=== PATIENT | female | born 1990 | race Caucasian/White ===

== ENCOUNTER 2020-03-04 12:59 | Emergency (ER) | payer BC ==
[2020-03-04 13:08] VITALS: BP 153/88; PULSE 90; RESP 18; TEMP 97.9
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
[2020-03-04 13:48] LABS: Basophils % (A) 1 %; Eosinophils # (A) 0.1 k/uL (0-0.7); Eosinophils % (A) 2 %; HCT 42.1 % (34.0-46.0); HGB 14.6 gm/dL (11.4-16.0); Lymphocytes # (A) 2.1 k/uL (1.0-4.8); Lymphocytes % (A) 43 %; MCH 31.3 pg (25.0-35.0); MCHC 34.7 g/dL (31.0-37.0); Mean Platelet Volume 7.3; Monocytes # (A) 0.2 k/uL (0-1.0); Monocytes % (A) 5 %; Neutrophils # (A) 2.3 k/uL (1.3-7.7); Neutrophils % (A) 47 %; Platelet Count 225 k/uL (150-450); RBC 4.68 m/uL (3.80-5.40); RDW 12.9 % (11.5-15.5); WBC 4.9 k/uL (3.8-10.6)
[2020-03-04 13:58] LABS: ALT 20 U/L (4-34); AST 29 U/L (14-36); African American GFR (CKD) >90 (>60 ml/min/1.73 sqM); Albumin 4.6 g/dL (3.5-5.0); Alkaline Phosphatase 36 U/L (38-126); Anion Gap 5 mmol/L; Blood Urea Nitrogen 12 mg/dL (7-17); Calcium 9.6 mg/dL (8.4-10.2); Carbon Dioxide 28 mmol/L (22-30); Chloride 105 mmol/L (98-107); Glucose 101 mg/dL (74-99); Non-African American GFR(CKD) 89 (>60 ml/min/1.73 sqM); Sodium 138 mmol/L (137-145); Total Bilirubin 0.9 mg/dL (0.2-1.3); Total Protein 7.7 g/dL (6.3-8.2)
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
== END 2020-03-04 15:57 | disposition home or self-care (01) ==
LOC: EC 12:59
DX: Z04.1 Encounter for examination and observation following transport accident (principal); R51.9 Headache, unspecified; R42 Dizziness and giddiness; R11.0 Nausea; Z88.8 Allergy status to other drugs, medicaments and biological substances
CPT/HCPCS: 36415; 80053; 85025; 72125; 70450; 71260; 74177; 99284; Q9967

== ENCOUNTER → 2021-02-22 | Outpatient (CLI) | payer MEDICAID ==
[2021-02-22 14:30] LABS: HGB 10.4 g/dL (12.0-15.0); MCH 30.6 pg (27.0-32.0); MCHC 32.5 g/dL (32.0-37.0); MCV 94.1 fL (80.0-97.0); Mean Platelet Volume 10.5 fL (9.5-12.2); Platelet Count 197 X 10*3/uL (140-440); WBC 5.99 X 10*3/uL (4.50-10.00)
[2021-02-22 16:08] LABS: Hepatitis B Surface Antigen Nonreactive (Nonreactive)
[2021-02-22 18:12] LABS: African American GFR (CKD) 146.5 (60.0-200.0); Non-African American GFR(CKD) 126.4 (60.0-200.0)
[2021-02-22 21:41] LABS: HIV 2 AB Non-Reactive (Non-Reactive); HIV AB P24 Non-Reactive (Non-Reactive); HIV P24 AG Non-Reactive (Non-Reactive)
== END | disposition home or self-care (01) ==
LOC: LABWHC1 07:19
PROVIDERS: ATTEND Obstetrics & Gynecology
DX: Z34.82 Encounter for supervision of other normal pregnancy, second trimester (principal); Z3A.00 Weeks of gestation of pregnancy not specified
CPT/HCPCS: 36415; 82565; 82950; 85027; 86762; 86780; 86850; 86900; 86901; 87340; 87390

== ENCOUNTER 2021-05-09 09:52 | Inpatient (IN) | payer MEDICAID ==
[2021-05-09 10:21] LABS: Creatinine,Urine Random 23.3 mg/dL; Protein/Creatinine Ratio,Urine 0.515
[2021-05-09 11:17] LABS: ALT 33 U/L (4-34); AST 55 U/L (14-36); African American GFR (CKD) >90 (>60 ml/min/1.73 sqM); Blood Urea Nitrogen 12 mg/dL (7-17); LDH 696 U/L (313-618); Non-African American GFR(CKD) >90 (>60 ml/min/1.73 sqM)
[2021-05-09 11:20] LABS: Basophils % (A) 1 %; Eosinophils # (A) 0.1 k/uL (0-0.7); Eosinophils % (A) 1 %; HCT 29.8 % (34.0-46.0); HGB 9.8 gm/dL (11.4-16.0); Hypochromasia Slight; Lymphocytes # (A) 1.6 k/uL (1.0-4.8); Lymphocytes % (A) 27 %; MCH 29.2 pg (25.0-35.0); MCHC 32.9 g/dL (31.0-37.0); MCV 88.7 fL (80.0-100.0); Mean Platelet Volume 9.5; Monocytes # (A) 0.3 k/uL (0-1.0); Monocytes % (A) 5 %; Neutrophils # (A) 3.7 k/uL (1.3-7.7); Neutrophils % (A) 62 %; Platelet Count 165 k/uL (150-450); Poikilocytosis Slight; RBC 3.36 m/uL (3.80-5.40); RDW 13.4 % (11.5-15.5); WBC 5.9 k/uL (3.8-10.6)
[2021-05-09] MEDS: BETAMET ACET-BETAMETH SOD PHOS 6 MG/ML MDV IM SCH ×2 (11:42→23:31)
[2021-05-09] MEDS ORDERED: DINOPROSTONE 10 MG INSERT.ER VAGINAL ONE (13:13)
--- NOTE | 2021-05-09 13:13 | P.HPOB ---
History of Present Illness H&P Date: 05/09/21 Chief Complaint: Hypertension This patient is a pleasant 30-year-old 2 para 1 female estimated date of confinement 06/04/2021 estimated gestational age 36-2/7 weeks gestation who is admitted to labor and delivery for evaluation of gestational hypertension in the office. Patient's history is such that she had severe preeclampsia with her last at 36 weeks which required delivery patient has been on baby aspirin this watch closely however today when she presented blood pressure was elevated. The office patient's blood pressures 146/91 and repeat blood pressures here show persistent diastolic elevation over 90. Laboratory evaluation does show elevated liver function tests LDH, and protein to creatinine ratio all consistent with preeclampsia with now severe features. I discussed options with the patient was point were to proceed with Celestone therapy, Cervidil induction of labor and anticipate vaginal delivery. otherwise has been uncomplicated. 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 History of Any Multi-Drug Resistant Organisms: None Reported Past Surgical History: No Surgical Hx Reported Additional Past Surgical History / Comment(s): Breast Augmentation 4 years ago, no complications Past Anesthesia/Blood Transfusion Reactions: No Reported Reaction Past Psychological History: No Psychological Hx Reported Smoking Status: Never smoker Past Alcohol Use History: None Reported, Rare Past Drug Use History: None Reported - Past Family History Mother Additional Family Medical History / Comment(s): Chrone's Disease Medications and Allergies Home Medications Medication Instructions Recorded Confirmed Type Aspirin [Adult Low Dose Aspirin EC] 81 mg PO DAILY 05/09/21 05/09/21 History Pnv No.95/Ferrous Fum/Folic AC 1 tab PO DAILY 05/09/21 05/09/21 History [ Multivitamin Tablet] Allergies Allergy/AdvReac Type Severity Reaction Status Date / Time chlorpromazine Allergy Nausea & Verified 03/04/20 13:42 [From Thorazine] Vomiting prochlorperazine Allergy Nausea & Verified 03/04/20 13:42 [From Compazine] Vomiting Exam Vital Signs Temp Pulse Resp BP Pulse Ox 05/09/21 11:42 97.9 F 69 18 137/91 100 Intake and Output 02/05/09/21 05/09/21 22:59 06:59 14:59 Other: Weight 64.41 kg - OBG Physical Exam Abdomen: bowel sounds normal, no diffuse tenderness, no bruit present, no guarding noted, no hepatomegaly, no splenomegaly, no mass Vulva: both: normal Vagina: normal moisture, no discharge Cervix: no lesion (Cervix in the office is closed), no discharge Uterus: enlarged (Fundal height 36 cm) Results blood work shows she is AB+, rubella immune, RPR nonreactive, hepatitis B negative, HIV is nonreactive, Glucola was normal, group B strep was negative most recent ultrasound done on the shows the baby to be vertex 6 lbs. 4 oz. Patient did receive TDap and the COVID vaccine. Result Diagrams: 05/09/21 10:44 05/09/21 10:44 Abnormal Lab Results - Last 24 Hours (Table) 05/09/21 05/09/21 Range/Units 10:44 10:44 RBC 3.36 L (3.80-5.40) m/uL Hgb 9.8 L (11.4-16.0) gm/dL Hct 29.8 L (34.0-46.0) % AST 55 H (14-36) U/L Lactate Dehydrogenase 696 H (313-618) U/L Assessment and Plan Assessment: This is a pleasant 30-year-old 2 para 1 female 36-2/7 weeks gestation with preeclampsia and severe features. Plan as Celestone therapy, two-stage induction of labor, and anticipate vaginal delivery. Patient I have discussed her clinical findings and condition and she wishes to proceed. All of her questions are answered. (1) 36 weeks gestation of Current Visit: Yes Status: Acute Code(s): Z3A.36 - 36 WEEKS GESTATION OF SNOMED Code(s): 07490101 (2) Severe pre-eclampsia Current Visit: Yes Status: Acute Code(s): O14.10 - SEVERE PRE-ECLAMPSIA, UNSPECIFIED TRIMESTER SNOMED Code(s): 80790387
[2021-05-09] MEDS: BUTORPHANOL 1 MG/ML 1 ML VIAL IV PRN ×2 (21:21→23:30)
[2021-05-10] MEDS: BUTORPHANOL 1 MG/ML 1 ML VIAL IV PRN ×2 (01:30→06:49)
[2021-05-10] MEDS ORDERED: CARBOPROST TROMETHAMINE 250 MCG/ML 1 ML AMP IM PRN (04:51)
[2021-05-10] MEDS ORDERED: OXYTOCIN 30 UNITS/500 ML NS 30 UNIT in SALINE 1 500ML.BAG IV SCH ×2 (04:51→13:01)
[2021-05-10] MEDS ORDERED: LACTATED RINGERS 1,000 ML IV SCH (04:51)
[2021-05-10] MEDS ORDERED: TERBUTALINE 1 MG/ML VIAL SQ PRN (04:51)
[2021-05-10] MEDS ORDERED: METHYLERGONOVINE 0.2 MG/ML 1 ML AMP IM PRN (04:51)
[2021-05-10] MEDS ORDERED: OXYTOCIN 10 UNIT/ML 1 ML VIAL IM PRN (04:51)
[2021-05-10] MEDS ORDERED: LIDOCAINE 1% (PF) 10 MG/ML (30 ML SDV) SQ PRN (04:51)
[2021-05-10 05:26] LABS: Basophils % (A) 0 %; Eosinophils % (A) 0 %; HCT 33.3 % (34.0-46.0); HGB 10.8 gm/dL (11.4-16.0); Hypochromasia Slight; Lymphocytes # (A) 1.1 k/uL (1.0-4.8); Lymphocytes % (A) 8 %; MCH 28.7 pg (25.0-35.0); MCHC 32.5 g/dL (31.0-37.0); MCV 88.1 fL (80.0-100.0); Mean Platelet Volume 9.6; Monocytes # (A) 0.3 k/uL (0-1.0); Monocytes % (A) 2 %; Neutrophils # (A) 11.7 k/uL (1.3-7.7); Neutrophils % (A) 89 %; Platelet Count 168 k/uL (150-450); Poikilocytosis Slight; RBC 3.78 m/uL (3.80-5.40); RDW 13.1 % (11.5-15.5); WBC 13.2 k/uL (3.8-10.6)
[2021-05-10 05:37] LABS: INR 0.8 (<1.2); Partial Thromboplastin Time 24.1 sec (22.0-30.0); Prothrombin Time 9.5 sec (9.0-12.0)
[2021-05-10] MEDS ORDERED: CITRIC ACID-SODIUM CITRATE 15 ML CUP PO ONE (05:50)
[2021-05-10] MEDS ORDERED: ROPIVACAINE 100 MG, fentaNYL (PF). 200 MCG in SODIUM CHLORIDE 0.9% 76 ML EPIDURAL ONE (09:09)
--- NOTE | 2021-05-10 12:58 | P.PROBDLV ---
Vaginal Delivery Note - . Vaginal Delivery Note: Normal vaginal delivery viable female Apgars 9 and 9 delivery time is 1244 hrs. Please see dictated H&P for intimate details of this patient's admission. In brief summary this is a pleasant 30-year-old 2 para 1 female 36-3/7 weeks gestation admitted yesterday with severe preeclampsia. Patient is given Celestone and Cervidil placement last evening. This was pulled at about 11:00 last evening she was regular labor and changed to 2 cm dilated. This morning I did artificial rupture membranes for clear fluid. Labor was augmented with Pitocin. She did get an epidural for pain control. Patient progresses quickly thereafter and gets to complete. Patient pushes approximately 2 times pushes the head to the perineum. Posterior perineum is supported we have controlled delivery of the infant's head over the intact perineum. Also nares are bulb suctioned. There is no evidence of a nuchal cord. We then have spontaneous delivery the anterior and posterior shoulder and rest this 's body. Infant's head was straight occiput anterior presentation. After delivery of the infant the umbilical cord is doubly clamped and cut immediately due to history of jaundice with previous baby. The placenta is then spontaneously delivered intact. Inspection of the perineum shows a superficial right periurethral lacerations not require repair. Estimated blood loss is 100 mL. There are no complications. All counts are correct 3. Infant and mother are stable delivery room.
[2021-05-10] MEDS ORDERED: bisacodyL 10 MG SUPP RECTAL PRN (13:01)
[2021-05-10] MEDS ORDERED: LANOLIN CREAM 5 GM TUBE TOPICAL PRN (13:01)
[2021-05-10] MEDS ORDERED: BENZOCAINE/MENTHOL SPRAY 1 GM/SPRAY AEROSOL TOPICAL PRN (13:01)
[2021-05-10] MEDS ORDERED: SIMETHICONE 80 MG CHEWABLE PO PRN (13:01)
[2021-05-10] MEDS ORDERED: diphenhydrAMINE 50 MG/ML 1 ML VIAL IVP PRN (13:01)
[2021-05-10] MEDS ORDERED: HYDROCORTISONE 2.5% RECTAL CREAM 30 GM TUBE RECTAL PRN (13:01)
[2021-05-10] MEDS ORDERED: diphenhydrAMINE 25 MG CAP PO PRN (13:01)
[2021-05-10] MEDS: SENNOSIDES-DOCUSATE SODIUM 1 EACH TAB PO SCH ×2 (14:01→19:31)
[2021-05-10] MEDS: IBUPROFEN 600 MG TAB PO PRN (19:32)
[2021-05-10 20:10] VITALS: RESP 16
[2021-05-10] MEDS: ZOLPIDEM 5 MG TAB PO PRN (21:26)
[2021-05-11] MEDS: IBUPROFEN 600 MG TAB PO PRN ×3 (06:22→19:32)
--- NOTE | 2021-05-11 06:29 | P.PNOBGVD ---
Subjective - Subjective Patient reports: Reports appetite normal, Reports voiding normally, Reports pain well controlled, Reports ambulating normally : doing well Objective - Latest Vital Signs Latest vital signs: Vital Signs Temp Pulse Resp BP Pulse Ox 05/11/21 00:00 98.7 F 99 16 115/63 05/10/21 20:00 97.9 F 81 16 126/78 98 05/10/21 15:05 98.3 F 62 17 140/81 05/10/21 14:31 76 17 143/67 05/10/21 14:01 98.6 F 71 16 144/86 05/10/21 13:46 75 16 135/89 05/10/21 13:26 77 17 113/59 05/10/21 13:10 76 16 137/81 05/10/21 12:53 87 16 148/82 Intake and Output 05/10/21 05/10/21 05/11/21 14:59 22:59 06:59 Intake Total 126.233 Output Total 400 175 Balance -273.767 -175 Intake: Intake, IV Titration 126.233 Amount Oxytocin 30 Units/500 ml 126.233 Ns 30 unit In Saline 1 500ml.bag @ Per Protocol IV .Q0M [facility] Rx#:[id number] Output: Urine 300 Straight 300 Estimated Blood Loss 100 Output, Quantitative 175 Blood Loss Other: # Voids 1 - Exam Lungs: bilateral: normal Chest: Normal S1, Normal S2 Extremities: Present: normal Abdomen: Present: normal appearance, soft Uterus: Present: normal, firm Assessment and Plan Assessment: day #1. Patient is resting without complaints and wishes to go home. Blood pressures were very good she's not required any medications to treat them. Repeat blood work is pending. Patient's having normal lochia. My impression is this is a normal course. If her labs look good and her blood pressures remain good I think she is stable for discharge home follow up with me in the office. (1) 36 weeks gestation of Current Visit: Yes Status: Acute Code(s): Z3A.36 - 36 WEEKS GESTATION OF SNOMED Code(s): 59871399 (2) Severe pre-eclampsia Current Visit: Yes Status: Acute Code(s): O14.10 - SEVERE PRE-ECLAMPSIA, UNSPECIFIED TRIMESTER SNOMED Code(s): 24836667
--- NOTE | 2021-05-11 06:34 | P.DS ---
Providers Date of admission: 05/09/21 11:28 Expected date of discharge: 05/11/21 Attending physician: Rashad Hopper Primary care physician: Stated None - Discharge Diagnosis(es) (1) 36 weeks gestation of Current Visit: Yes Status: Acute (2) Severe pre-eclampsia Current Visit: Yes Status: Acute Hospital Course: Please see dictated H&P for intimate details of this patient's admission. Brief summary this is a pleasant 30-year-old 2 para 1 female 36-3/7 weeks gestation who is admitted with hypertension found to have preeclampsia with severe features. Patient has Celestone dose given and Cervidil placed. The next morning patient had induction of labor and went on to have a vaginal delivery viable female . Please see dictated delivery note. patient and the baby did very well and blood pressures remained excellent she is felt to be stable for discharge home follow up with me in 6 weeks. Procedures: Two-stage induction of labor and normal vaginal delivery Plan - Discharge Summary New Discharge Prescriptions: New Ibuprofen [Motrin] 600 mg PO Q6HR PRN #30 tab PRN Reason: Pain No Action Pnv No.95/Ferrous Fum/Folic AC [ Multivitamin Tablet] 1 tab PO DAILY Aspirin [Adult Low Dose Aspirin EC] 81 mg PO DAILY Discharge Medication List Aspirin [Adult Low Dose Aspirin EC] 81 mg PO DAILY 05/09/21 [History] Pnv No.95/Ferrous Fum/Folic AC [ Multivitamin Tablet] 1 tab PO DAILY 05/09/21 [History] Ibuprofen [Motrin] 600 mg PO Q6HR PRN #30 tab 05/11/21 [Rx] Follow up Appointment(s)/Referral(s): Rashad Hopper MD [STAFF PHYSICIAN] - 6 Weeks (Post op. 06/20/21 @2:15pm) Patient Instructions/Handouts: Vaginal Delivery (DC) Activity/Diet/Wound Care/Special Instructions: No intercourse or anything per vagina for 6 weeks. Please call if any fever, chills, excessive vaginal bleeding, and/or abdominal pain. Discharge Disposition: HOME SELF-CARE
[2021-05-11 06:52] LABS: Basophils % (A) 0 %; Eosinophils % (A) 0 %; HCT 28.9 % (34.0-46.0); HGB 9.6 gm/dL (11.4-16.0); Hypochromasia Slight; Lymphocytes # (A) 1.9 k/uL (1.0-4.8); Lymphocytes % (A) 11 %; MCH 29.4 pg (25.0-35.0); MCHC 33.1 g/dL (31.0-37.0); MCV 88.8 fL (80.0-100.0); Mean Platelet Volume 10.5; Monocytes # (A) 0.5 k/uL (0-1.0); Monocytes % (A) 3 %; Neutrophils # (A) 14.6 k/uL (1.3-7.7); Neutrophils % (A) 84 %; Platelet Count 159 k/uL (150-450); Poikilocytosis Slight; RBC 3.26 m/uL (3.80-5.40); RDW 13.7 % (11.5-15.5); WBC 17.4 k/uL (3.8-10.6)
[2021-05-11 06:57] LABS: Albumin 2.6 g/dL (3.5-5.0); Bilirubin,Unconjugated 0.2 mg/dL (0.0-1.1); Total Bilirubin 0.2 mg/dL (0.2-1.3); Total Protein 5.4 g/dL (6.3-8.2)
[2021-05-11] MEDS: SENNOSIDES-DOCUSATE SODIUM 1 EACH TAB PO SCH ×2 (08:29→22:20)
[2021-05-11] MEDS: ZOLPIDEM 5 MG TAB PO PRN (19:32)
[2021-05-12] MEDS: IBUPROFEN 600 MG TAB PO PRN ×2 (01:07→07:38)
[2021-05-12] MEDS: SENNOSIDES-DOCUSATE SODIUM 1 EACH TAB PO SCH (07:39)
[2021-05-12 08:45] VITALS: BP 145/87; PULSE 79; TEMP 98
== END 2021-05-12 11:06 | disposition home or self-care (01) | DRG 806 ==
LOC: FBPOP 09:52 → 4FBP 11:28
PROVIDERS: ADMIT Obstetrics & Gynecology; ATTEND Obstetrics & Gynecology
PROC: 10E0XZZ Delivery of Products of Conception, External Approach (ICD-10-PCS; principal; 2021-05-10)
PROC: 3E0P7VZ Introduction of Hormone into Female Reproductive, Via Natural or Artificial Opening (ICD-10-PCS; principal; 2021-05-10)
PROC: 3E033VJ Introduction of Other Hormone into Peripheral Vein, Percutaneous Approach (ICD-10-PCS; principal; 2021-05-10)
DX: O14.14 Severe pre-eclampsia complicating childbirth (principal); O98.32 Other infections with a predominantly sexual mode of transmission complicating childbirth; Z37.0 Single live birth; A60.09 Herpesviral infection of other urogenital tract; O71.82 Other specified trauma to perineum and vulva; Z3A.36 36 weeks gestation of pregnancy; Z79.82 Long term (current) use of aspirin; Z88.8 Allergy status to other drugs, medicaments and biological substances
CPT/HCPCS: 59025; 80076; 82565; 82570; 83615; 84156; 84450; 84460; 84520; 84550; 85025; 85610; 85730; 86850; 86900; 86901; 88307

== ENCOUNTER → 2021-07-05 | Outpatient (CLI) | payer MEDICAID, OTHER ==
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
== END | disposition home or self-care (01) ==
LOC: RADMRIMAIN 12:21
PROVIDERS: ATTEND Physical Medicine & Rehabilitation
DX: M50.30 Other cervical disc degeneration, unspecified cervical region (principal)
CPT/HCPCS: 72141